=== PATIENT | male | born 1940 | race Caucasian/White ===

== ENCOUNTER 2018-03-25 15:33 | Emergency (ER) | payer OTHER, SELFPAY ==
[2018-03-25 15:40] VITALS: BP 162/84; PULSE 85; RESP 14; TEMP 36.9; O2SAT 100; BMI 22.6
--- NOTE | 2018-03-25 15:41 | ED_ITS ---
HPI - General Adult General Chief complaint: Neuro Symptoms/Deficit Stated complaint: pain with eye movement,sent by [facility] Time Seen by Provider: 03/25/18 15:39 Source: patient Mode of arrival: ambulatory Limitations: no limitations History of Present Illness HPI narrative: Patient is a 78-year-old male sent over from the ophthalmology clinic for concerning findings during that visit. 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 Their phone number is . Patient went to that visit today because for the past 2 weeks he has had a stable central scotoma. Then over the course of the next week he developed near complete blurring of his visual field. 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 Also has history of cataracts. Has also had Lasix performed in both eyes back in 1997. During his visit today it was noted that the patient had the continued left optic nerve atrophy and also noted today that the patient had right sided papilledema. Dr. Akins called me and was concerned about these findings and concern for a intracranial mass. Related Data Home Medications Medication Instructions Recorded Confirmed No Known Home Medications 03/25/18 03/25/18 Allergies Allergy/AdvReac Type Severity Reaction Status Date / Time No Known Drug Allergies Allergy Verified 03/25/18 16:05 Review of Systems Constitutional Denies fever(s) and Denies headache(s) Eyes Reports change in vision Comments: Central scotoma Blurring of visual field ENT Ears, Nose, Mouth, and Throat: Denies vertigo, Denies dizziness and Denies headache(s) Cardiovascular Denies chest pain, Denies syncope and Denies dyspnea Respiratory Denies cough and Denies dyspnea Gastrointestinal Gastrointestinal: Denies abdominal pain, Denies nausea and Denies vomiting Genitourinary Denies hematuria and Denies dysuria Musculoskeletal Denies myalgias and Denies arthralgias Integumentary/Breasts Denies pruritus, Denies lesions and Denies rash Neurologic Denies confusion, Denies vertigo, Denies dizziness, Denies syncope and Denies headache(s) Psychiatric Denies confusion Hematologic/Lymphatic Denies easy bleeding and Denies easy bruising FOR[facility]LY [facility] Medical History BPH (benign prostatic hyperplasia) (Acute) Surgical History Status post appendectomy Status post hernia repair Status post repair of hydrocele Social History Smoking Status: Never smoker Exam Initial Vital Signs Initial Vital Signs: Vital Signs Temperature 98.5 F 03/25/18 15:40 Pulse Rate 85 03/25/18 15:40 Respiratory Rate 14 03/25/18 15:40 Blood Pressure 162/84 H 03/25/18 15:40 Pulse Oximetry 100 03/25/18 15:40 Const General: cooperative, healthy appearing, comfortable, well developed, well groomed and No acute distress Orientation: alert, awake and oriented x3 HENMT Head: normal to inspection, normocephalic and atraumatic Ears: hearing grossly normal bilaterally Nose: external nose normal Eyes Other: Dilated pupils from the eye exam earlier today. Resp Effort & Inspection: normal respiratory effort Auscultation: clear to auscultation bilaterally Cardio Rate: regular rate Rhythm: regular rhythm Back/Spine/Pelvis Back: No back tenderness Skin Lesions: lesions noted Rashes: rash noted Neuro General: alert, awake and oriented x3 Cognition: normal cognition Speech: speech normal Gait: normal gait Motor: muscle tone normal throughout Sensory Exam: no sensory deficits noted Extrem General: normal to inspection and full ROM Psych Appearance: grossly normal and well kempt Course Orders Ordered: ED Orders 03/25/18 17:00 Basic Metabolic Panel Stat Complete Blood Count AUTO DIFF Stat 03/25/18 17:25 CT head/brain wo con Stat Vital Signs - 8 hr 03/25/18 15:40 03/25/18 16:03 03/25/18 16:35 Temperature 98.5 F Pulse Rate 85 85 73 Respiratory Rate 14 14 16 Blood Pressure 162/84 H Blood Pressure [Left Arm] 165/95 H 147/77 H Pulse Oximetry 100 98 100 Medical Decision Making MDM Narrative Medical decision making narrative: Patient was sent over for concern of a intracranial mass. Discussed the case with the [place] provider who asked us to obtain a CT of the head prior to any disposition. This was obtained and waiting for results. Care turned over to night provider at change of shift for further disposition. Lab Data Lab results reviewed: Yes I reviewed the patient's lab results. Result diagrams: 03/25/18 17:00 03/25/18 17:00 Lab Results 03/25/18 03/25/18 Range/Units 17:00 17:00 WBC 5.4 (4.5-11.0) X10^3/uL RBC 4.80 (4.5-5.9) X10^6/uL Hgb 15.3 (13.5-17.5) g/dL Hct 44.6 (41-53) % MCV 93.0 (80-100) fL MCH 31.8 (26-34) PG MCHC 34.2 (30-36) % RDW 12.9 (11.6-14.8) % Plt Count 188 (150-400) X10^3/uL Neut % (Auto) 70.0 (50-75) % Lymph % (Auto) 16.6 L (25-40) % Menard % (Auto) 11.3 (3-14) % Eos % (Auto) 1.3 L (2-4) % Baso % (Auto) 0.8 (0-2) % Neut # (Auto) 3800 (0718-4911) /uL Sodium 142 (137-145) mmol/L Potassium 4.2 (3.4-5.1) mmol/L Chloride 101 (98-107) mmol/L Carbon Dioxide 33 H (22-32) mmol/L BUN 15 (9-20) mg/dL Creatinine 0.70 (0.66-1.25) mg/dL Estimated GFR > 60.0 (>60) mL/min BUN/Creatinine Ratio 21.4 (6-22) Glucose 92 (80-110) mg/dL Calcium 9.4 (8.4-10.2) mg/dL Discharge Plan Departure Patient Disposition: [facility] Clinical Impression: Visual loss Discharge Date/Time: 03/25/18 22:40 Interventions: ED Discharge Assessment Last Done: 03/25/18 22:36 Prescriptions: No Action No Known Home Medications RF: 0
[2018-03-25 16:03] VITALS: BP 165/95; PULSE 85; RESP 14; O2SAT 98
[2018-03-25 16:35] VITALS: BP 147/77; PULSE 73; RESP 16; O2SAT 100
--- NOTE | 2018-03-25 17:25 | DI.CT.S_ITS ---
PROCEDURE: CT HEAD/BRAIN WO CON INDICATIONS: Right sided papilledema TECHNIQUE: Noncontrast 4.5 mm thick angled axial sections acquired from the foramen magnum to the vertex, with coronal and sagittal reformats. For radiation dose reduction, the following was used: automated exposure control, adjustment of mA and/or kV according to patient size. COMPARISON: None. FINDINGS: Image quality: Excellent. CSF spaces: Basal cisterns are patent. No extra-axial fluid collections. The ventricles are symmetric in size and shape. There is uoxn-rh-xvrjnior cerebral volume loss, with resultant ventricular and sulcal prominence. Brain: No intracranial hemorrhage, mass, or mass effect. There are subcortical, periventricular and deep white matter hypodensities consistent with mild chronic small vessel ischemic changes. There is intracranial internal carotid artery atherosclerosis. Skull and face: Calvarium and visualized facial bones appear intact, without suspicious lesions. The orbits appear within normal limits without intrarenal mass lesions identified. The globes are intact and symmetric in appearance. Sinuses: Visualized sinuses and mastoids are clear. IMPRESSION: 1. No acute intracranial abnormality. 2. No intraorbital or intracranial mass identified. If clinical concern persists, further evaluation may be obtained with MRI. 3. Mild chronic white matter small vessel ischemic changes and mild to moderate cerebral volume loss. Dictated by: Tyrone Barrientos M.D. on 03/25/2018 at 17:56 Approved by: Tyrone Barrientos M.D. on 03/25/2018 at 17:58
[2018-03-25 17:30] LABS: Add Manual Diff / Slide Review NO; Basophils Percent Auto 0.8 % (0-2); Eosinophils Percent Auto 1.3 % (2-4); Hematocrit 44.6 % (41-53); Hemoglobin 15.3 g/dL (13.5-17.5); Lymphocytes Percent Auto 16.6 % (25-40); Mean Corpuscular HGB Conc 34.2 % (30-36); Mean Corpuscular Hemoglobin 31.8 PG (26-34); Monocytes Percent Auto 11.3 % (3-14); Neutrophils Absolute Auto 3800 /uL (3000-5900); Platelet Count 188 X10^3/uL (150-400); Red Cell Distribution Width 12.9 % (11.6-14.8); White Blood Cell Count 5.4 X10^3/uL (4.5-11.0)
[2018-03-25 17:37] LABS: BUN Creatinine Ratio 21.4 (6-22); Blood Urea Nitrogen 15 mg/dL (9-20); Calcium 9.4 mg/dL (8.4-10.2); Carbon Dioxide 33 mmol/L (22-32); Chloride 101 mmol/L (98-107); Estimated Glomerular Filt Rate > 60.0 mL/min (>60); Glucose 92 mg/dL (80-110); HEMOLYSIS < 15 (0-50); Potassium 4.2 mmol/L (3.4-5.1); Sodium 142 mmol/L (137-145)
[2018-03-25 19:50] VITALS: BP 132/71; PULSE 80; RESP 12; TEMP 36.7; O2SAT 99
[2018-03-25 22:36] VITALS: BP 136/80; PULSE 59; RESP 16; TEMP 36.5; O2SAT 98
== END 2018-03-25 22:40 | disposition short-term general hospital (02) ==
PROVIDERS: Emergency Provider Emergency Medicine; Family Provider Family Medicine
DX: H54.7 Unspecified visual loss (principal)
CPT/HCPCS: 36415; 70450; 80048; 85025; 99283; 99284

== ENCOUNTER → 2018-08-06 11:24 | Outpatient (CLI) | payer OTHER, SELFPAY ==
[2018-08-06 12:08] LABS: Alanine Aminotransferase 23 IU/L (21-72); Albumin 4.3 g/dL (3.5-5.0); Albumin Globulin Ratio 1.6 (1.0-2.8); Alkaline Phosphatase 59 U/L (38-126); Aspartate Aminotransferase 16 IU/L (17-59); Bilirubin Total 0.4 mg/dL (0.2-1.3); Bilirubin Unconjugated 0.2 mg/dL (0.0-1.1); Globulin 2.7 g/dL (1.7-4.1); HEMOLYSIS < 15 (0-50)
[2018-08-06 15:25] LABS: Vitamin D 25 Hydroxy (D3) 48.6 ng/mL (30.0-100.0)
== END ==
PROVIDERS: PCP Student in an Organized Health Care Education/Training Program; Visit Provider Student in an Organized Health Care Education/Training Program
DX: E55.9 Vitamin D deficiency, unspecified (principal); Z79.899 Other long term (current) drug therapy
CPT/HCPCS: 36415; 80076; 82306

== ENCOUNTER → 2018-11-03 10:00 | Outpatient (CLI) | payer OTHER, SELFPAY ==
[2018-11-03 10:05] LABS: Bacteria Urine None Seen; RBC Urine None Seen (0-5/HPF); WBC Urine None Seen (0-5/HPF)
[2018-11-03 12:07] LABS: Appearance Urine UA CLEAR; Bilirubin Urine UA NEGATIVE (NEGATIVE); Color Urine UA YELLOW; Glucose Urine UA NEGATIVE (Negative); Ketones Urine UA NEGATIVE (NEGATIVE); Leukocyte Esterase Urine UA NEGATIVE (NEGATIVE); Nitrite Urine UA NEGATIVE (Negative); Occult Blood Urine UA NEGATIVE (Negative); Protein Urine UA NEGATIVE (Negative); Specific Gravity Urine UA 1.015 (1.000-1.035); Urobilinogen Urine UA 0.2 E.U./dL (0.2)
[2018-11-03 12:10] LABS: Protein (Total) Urine Random 5 mg/dL (0-12)
[2018-11-03 12:24] LABS: Culture Indicated Urine Cult Not Indicated
== END ==
PROVIDERS: PCP Student in an Organized Health Care Education/Training Program; Visit Provider Student in an Organized Health Care Education/Training Program
DX: R31.9 Hematuria, unspecified (principal); R80.9 Proteinuria, unspecified
CPT/HCPCS: 81001; 84156

== ENCOUNTER → 2020-01-31 12:36 | Outpatient (CLI) | payer OTHER, SELFPAY ==
--- NOTE | 2020-01-31 12:37 | DI.US.S_ITS ---
PROCEDURE: US RENAL COMPLETE INDICATIONS: URINARY RETENTION TECHNIQUE: Real-time scanning was performed of the kidneys and bladder, with image documentation. COMPARISON: None. FINDINGS: Kidneys: Kidneys are normal in size. Right kidney measures 10.9 cm long; left kidney measures 10.9 cm long. Right renal cortical thickness is 1.5 cm; left renal cortical thickness is 1.5 cm. Renal cortical echotexture is normal. No hydronephrosis or nephrolithiasis. No suspicious solid mass lesions. Bladder: Pre-void bladder volume is 272 mL. Post-void residual is 50 mL. Pre-void images demonstrate no intraluminal masses or stones. On pre-void images, bilateral ureteral jets are noted with color Doppler interrogation. (Of note, ureteral jets may not be detectable in up to 25% of cases due to insufficient differences in specific gravity between ureteral and bladder urine). Bladder trabeculations. Miscellaneous: No free pelvic fluid. IMPRESSION: 1. Normal appearance of the kidneys bilaterally. 2. Mild postvoid residual in the urinary bladder wall trabeculations. Mild chronic bladder outlet obstruction cannot be excluded and clinical correlation recommended. Dictated by: Kan Brooks [facility] Interpreted: Kecia Nevarez MD on 01/31/2020 at 14:12 Approved by: Kecia Nevarez M.D. on 01/31/2020 at 18:16
== END ==
PROVIDERS: PCP Student in an Organized Health Care Education/Training Program; Referring Provider Student in an Organized Health Care Education/Training Program; Visit Provider Student in an Organized Health Care Education/Training Program
DX: N40.1 Benign prostatic hyperplasia with lower urinary tract symptoms (principal); R33.9 Retention of urine, unspecified; R10.9 Unspecified abdominal pain
CPT/HCPCS: 76770

== ENCOUNTER 2020-05-03 10:30 | Outpatient (RCR) | payer OTHER, SELFPAY ==
--- NOTE | 2020-04-15 15:48 | PT.OIE ---
Current Diagnoses Urge incontinence (04/12/20) Nocturia (04/12/20) Urgency of urination (04/12/20) Past Medical History (Last Updated 05/26/18 @ 12:46 by Michelle Garcia) BPH (benign prostatic hyperplasia) (Chronic) Hypertension (Chronic) Past Surgical History (Last Updated 05/26/18 @ 13:13 by Michelle Garcia) History of colonoscopy (Resolved 10/31/11) History of right inguinal hernia repair (Resolved 12/01/11) Status post appendectomy (Resolved 1967) Status post hernia repair (Resolved 1975) Status post repair of hydrocele (Resolved 1975) Visit Care Team Role Provider Type Taiwo Guillermo MD Attending Provider Physician Primary Care Provider Referring Provider Specialty: Internal Medicine Address: [address] [place] [address], [address], [facility] Email: [email or web address] Physical Therapy Initial Evaluation PT-OP-A Visit Information Start: 04/15/20 15:14 Freq: Status: Active Protocol: Document 04/12/20 10:30 [facility] (Rec: 04/15/20 15:47 [facility] [email or web address]) Out-Patient Physical Therapy Visit Information Visit Information Visit Type Initial Evaluation Visit Start Time 10:30 Visit Stop Time 11:15 Total Visit Minutes 45 Visit Number 1 Evaluation Information Evaluation Date 04/12/20 PT-OP-B Current Condition Start: 04/15/20 15:14 Freq: Status: Active Protocol: Document 04/12/20 10:30 [facility] (Rec: 04/15/20 15:47 [facility] [email or web address]) Current Condition History of Current Condition Onset Date chronic problem Current Complaints urinary frequency and nocturia History of Current Condition Luis is here today with complaints of urinary frequency and nocturia. He notes that he has had a history of frequent urination and nocturia. He voids 2-5 times per night. He states he has undergone urodynamic testing and per his report he is fully emptying his bladder. 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 He notes this started in is 40's but due to herbal remedies he is no longer experiencing the pain. But, when his bladder gets full it is a discomfort to him. He states that he empties his bladder frequently throughout the day prior to it being full. Past medical history includes right optic nerve inflammation, hernia and hydrocele repair, takes lipitor of elevated cholsterol . Treatment Goals Patient/Caregiver Goals pt would like to increase his duration between voids and decrease urinary frequency and urgency Prior Functional Status Baseline Function- ADL's Independent Baseline Function- Mobility Independent PT-OP-C Subjective Start: 04/15/20 15:14 Freq: Status: Active Protocol: Document 04/12/20 10:30 [facility] (Rec: 04/15/20 15:47 [facility] [email or web address]) OP-PT Subjective Patient Comments Patient Comments Pt reports during the day he drinks 1-2 cups of orange juice, 2 cups of coffee, 4 cups of water in am and pm, some times iced tea and wine at night but stops prior to 6 pm. He usually goes to bed around 8:30 PM PT-OP-F Manual Assessment Start: 04/15/20 15:14 Freq: Status: Active Protocol: Document 04/12/20 10:30 [facility] (Rec: 04/15/20 15:47 [facility] [email or web address]) Manual Assessments Soft Tissue Assessment Soft Tissue Mobility Assessment tightness of the myofasical tissue in the external posterior pelvic floor, adductors, and across the suprapubic region PT-OP-I Pelvic Floor Start: 04/15/20 15:14 Freq: Status: Active Protocol: Document 04/12/20 10:30 [facility] (Rec: 04/15/20 15:47 [facility] [email or web address]) Pelvic Floor Assessment Urine Pelvic Floor Surgery No Urinary Symptoms Urge Sensation Other Urinary Symptoms frequency of voiding and nocturia Voiding Frequency every hour during the day Nocturia 2-5 Contraction Ability Voluntary Contraction Moderate Voluntary Relaxation Moderate Comments Pelvic Floor Comments with external palpation Luis is able to properly contract his pelvic floor, there is some tension felt posteriorly, in the adductors and suprapubic fascia PT-OP-J Posture/Palpation/Skin Start: 04/15/20 15:14 Freq: Status: Active Protocol: Document 04/12/20 10:30 [facility] (Rec: 04/15/20 15:47 [facility] [email or web address]) Palpation Assessment Location adductors Palpation Location adductors Palpation Findings Soft Tissue Tightness sacral borders Palpation Location deep tissue tightness along the region of the coccygeus B Palpation Findings Soft Tissue Tightness,Muscle Guarding suprapubic fascia Palpation Location tightness and myofasical restrictions Palpation Findings Soft Tissue Tightness PT-OP-Q Treatments Start: 04/15/20 15:14 Freq: Status: Active Protocol: Document 04/12/20 10:30 [facility] (Rec: 04/15/20 15:47 [facility] [email or web address]) Self-Care/Home Management Treatment Education Patient Education Home Exercise Program Other Education pt was given a bladder diary today to begin looking at voiding frequency and bladder irritants, he was given a list of bladder irritants PT-OP-T Assessment and Plan Start: 04/15/20 15:14 Freq: Status: Active Protocol: Document 04/12/20 10:30 [facility] (Rec: 04/15/20 15:47 [facility] [email or web address]) Physical Therapy Assessment Rehab Potential Rehabilitation Potential Good Evaluation Complexity Number of Personal Factors/Comorbidities 0 Number of Body Systems Impaired 1-2 Clinical Presentation at Evaluation Stable Impairments Impairments Activity Tolerance,Sensation, Soft Tissue Mobility Other Impairments urniary urgency and nocturia Goals Tightness of the posterior pelvic floor Impairment tightness of the posterior pelvic floorm adductors, suprapubic fascia Blood Bank Booking Clerk Goal (LTG) Luis is educated on stretches for the pelvic floor , hips, and anterior abdominal wall to decrease irritation when his bladder is full and to help with fully emptying his bladder. LTG Duration 8 weeks bladder irritants contibuting to urgency Impairment The patient is consuming bladder irritants that can contribute to urgency Short Term Goal (STG) The patient is educated on bladder irritants and is given a bladder diary to begin logging his daily voids and fluid intake STG Duration 4 weeks One Impairment urinary urgency voiding every hour during the day, nocturia Short Term Goal (STG) Pt is educated on bladder retraining and urge deference techique STG Duration 4 weeks Mcfp Goal (LTG) Luis is able to delay the need to void to every 2-3 hours during the day and is waking only 1 time at night to void LTG Duration 8 weeks Assessment Summary Assessment Luis presents to physical therapy today with signs of urinary frequency and nocturia . may is here today with complaints of urinary frequency and nocturia. He reports voiding 2-5 times per night. He states he has undergone urodynamic testing and per his report he is fully emptying his bladder. 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 He notes this started in is 40's but due to herbal remedies he is no longer experiencing the pain. But, when his bladder gets full it is a discomfort to him. He states that he empties his bladder frequently throughout the day prior to it being full. He is retired and is able to frequently use the bathroom at home during the day. With examination today the patient was educated on the bladder and how the nerves from the bladder send a signal to the brain when it is time to empty. I explained to Luis how years of emptying his bladder prior to it being full due to prostate pain most likely have contributed to his difficulty with fully letting his bladder fill and nocturia. We talked about upregulation of the nervous system as this is what sounds like is happening to him. We reviewed bladder irritants today and he does start the day with both orange juice and coffee and ends the day with tea and sometimes wine. I educated him on how these irritants may be effecting his urgency and nocturia. He was given a bladder diary to begin recording his voids and what he is drinking and how much. I explained bladder retraining to him and urge deference technique. For this first week I asked Luis to try and avoid going to the bathroom just in case during the day and only once he had a urge. We will work on prolonging his voids during the day to try and help his nocturia. He is tight in his hip muscles, posterior pelvic floor, in the suprapubic fascia, and adductor muscles. We will start a stretching program for him as well to assist with fully relaxing when voiding and to help improve the bladders ability to fully expand. Physical Therapy Plan Frequency and Duration Frequency of Treatment 1x/Week Duration of Treatment 8 Plan of Care Start Date 04/12/20 Plan of Care End Date 06/07/20 Therapeutic Interventions Therapeutic Interventions Home Exercise Program, Neuromuscular Re-education, Patient/Caregiver Education, Self-Care/Home Management,Soft Tissue Mobilization, Therapeutic Exercises Modalities Biofeedback
--- NOTE | 2020-04-15 15:48 | PT.OPPOC ---
Physical, Occupational & Speech Therapy At [facility] Current Diagnoses Urge incontinence (04/12/20) Nocturia (04/12/20) Urgency of urination (04/12/20) Visit Care Team Role Provider Type Taiwo Guillermo MD Attending Provider Physician Primary Care Provider Referring Provider Specialty: Internal Medicine Address: [address] [place] [address], [address], [facility] Email: [email or web address] Plan Of Care PT-OP-T Assessment and Plan Start: 04/15/20 15:14 Freq: Status: Active Protocol: Document 04/12/20 10:30 [facility] (Rec: 04/15/20 15:47 [facility] [email or web address]) Physical Therapy Assessment Rehab Potential Rehabilitation Potential Good Evaluation Complexity Number of Personal Factors/Comorbidities 0 Number of Body Systems Impaired 1-2 Clinical Presentation at Evaluation Stable Impairments Impairments Activity Tolerance,Sensation, Soft Tissue Mobility Other Impairments urinary urgency and nocturia Goals Tightness of the posterior pelvic floor Impairment tightness of the posterior pelvic floor adductors, suprapubic fascia Mcfp Goal (LTG) Luis is educated on stretches for the pelvic floor , hips, and anterior abdominal wall to decrease irritation when his bladder is full and to help with fully emptying his bladder. LTG Duration 8 weeks bladder irritants contibuting to urgency Impairment The patient is consuming bladder irritants that can contribute to urgency Short Term Goal (STG) The patient is educated on bladder irritants and is given a bladder diary to begin logging his daily voids and fluid intake STG Duration 4 weeks One Impairment urinary urgency voiding every hour during the day, nocturia Short Term Goal (STG) Pt is educated on bladder retraining and urge deference technique STG Duration 4 weeks Mcfp Goal (LTG) Luis is able to delay the need to void to every 2-3 hours during the day and is waking only 1 time at night to void LTG Duration 8 weeks Assessment Summary Assessment Luis is here today with complaints of urinary frequency and nocturia. He reports voiding 2-5 times per night. He states he has undergone urodynamic testing and per his report he is fully emptying his bladder. 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 He notes this started in is 40's but due to herbal remedies he is no longer experiencing the pain. But, when his bladder gets full it is a discomfort to him. He states that he empties his bladder frequently throughout the day prior to it being full. He is retired and is able to frequently use the bathroom at home during the day. often every hour With examination today the patient was educated on the bladder and how the nerves from the bladder send a signal to the brain when it is time to empty. I explained to Luis how years of emptying his bladder prior to it being full due to prostate pain most likely have contributed to his difficulty with fully letting his bladder fill and nocturia. We talked about up regulation of the nervous system as this is what sounds like is happening to him. We reviewed bladder irritants today and he does start the day with both orange juice and coffee and ends the day with tea and sometimes wine. I educated him on how these irritants may be effecting his urgency and nocturia. He was given a bladder diary to begin recording his voids and what he is drinking and how much. I explained bladder retraining to him and urge deference technique. For this first week I asked Luis to try and avoid going to the bathroom just in case during the day and only once he had a urge. We will work on prolonging his voids during the day to try and help his nocturia. He is tight in his hip muscles, posterior pelvic floor, in the subrapubic fascia, and adductor muscles. We will start a stretching program for him as well to assist with fully relaxing when voiding and to help improve the bladders ability to fully expand. Physical Therapy Plan Frequency and Duration Frequency of Treatment 1x/Week Duration of Treatment 8 Plan of Care Start Date 04/12/20 Plan of Care End Date 06/07/20 Therapeutic Interventions Therapeutic Interventions Home Exercise Program, Neuromuscular Re-education, Patient/Caregiver Education, Self-Care/Home Management,Soft Tissue Mobilization, Therapeutic Exercises Modalities Biofeedback Plan of Care Dates Plan of Care Start Date 04/12/20 Plan of Care End Date 06/07/20 Electronically Signed by: Lima Dodge, PT 04/15/20 [id number] Please Sign and Return: I have reviewed this Plan of Care and certify that the skilled therapy services above are required to meet the patient?s needs. Physician Signature Date Printed Name and Credentials Clinical Instructor Signature Printed Name and Credentials
--- NOTE | 2020-04-26 13:30 | PT.OTN ---
Current Diagnoses Urge incontinence (04/26/20) Nocturia (04/26/20) Urgency of urination (04/26/20) Physical Therapy Treatment Note PT-OP-A Visit Information Start: 04/15/20 15:14 Freq: Status: Active Protocol: Document 04/26/20 10:35 [facility] (Rec: 04/26/20 10:42 [facility] [id number]) Out-Patient Physical Therapy Visit Information Visit Information Visit Type Treatment Note Visit Start Time 10:35 Visit Stop Time 11:15 Total Visit Minutes 45 Visit Number 2 PT-OP-B Current Condition Start: 04/15/20 15:14 Freq: Status: Active Protocol: Document 04/12/20 10:30 [facility] (Rec: 04/15/20 15:47 [facility] [id number]) Current Condition History of Current Condition Onset Date chronic problem Current Complaints urinary frequency and nocturia History of Current Condition Luis is here today with complaints of urinary frequency and nocturia. He notes that he has had a history of frequent urination and nocturia. He voids 2-5 times per night. He states he has undergone urodynamic testing and per his report he is fully emptying his bladder. 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 He notes this started in is 40's but due to herbal remedies he is no longer experiencing the pain. But, when his bladder gets full it is a discomfort to him. He states that he empties his bladder frequently throughout the day prior to it being full. Past medical history includes right optic nerve inflammation, hernia and hydrocele repair, takes lipitor of elevated cholsterol . Treatment Goals Patient/Caregiver Goals pt would like to increase his duration between voids and decrease urinary frequency and urgency Prior Functional Status Baseline Function- ADL's Independent Baseline Function- Mobility Independent PT-OP-C Subjective Start: 04/15/20 15:14 Freq: Status: Active Protocol: Document 04/26/20 10:35 [facility] (Rec: 04/26/20 10:42 [facility] [id number]) OP-PT Subjective Patient Comments Patient Comments pt brings in his bladder diary , he assumed that his bladder didn't have enough enough space to fill. He can tell that he has gotten into the habit of going more than he should during the day. His biggest voids are after he has been sitting relaxing in his recliner. He got to 12-13 oz amount of voiding which was a lot for him. Last night he slept for 4 hours and then for 5 hours which is really rare. Patient Reported Progress Improving PT-OP-F Manual Assessment Start: 04/15/20 15:14 Freq: Status: Active Protocol: Document 04/12/20 10:30 [facility] (Rec: 04/15/20 15:47 [facility] [id number]) Manual Assessments Soft Tissue Assessment Soft Tissue Mobility Assessment tightness of the myofasical tissue in the external posterior pelvic floor, adductors, and across the suprapubic region PT-OP-I Pelvic Floor Start: 04/15/20 15:14 Freq: Status: Active Protocol: Document 04/12/20 10:30 [facility] (Rec: 04/15/20 15:47 [facility] [id number]) Pelvic Floor Assessment Urine Pelvic Floor Surgery No Urinary Symptoms Urge Sensation Other Urinary Symptoms frequency of voiding and nocturia Voiding Frequency every hour during the day Nocturia 2-5 Contraction Ability Voluntary Contraction Moderate Voluntary Relaxation Moderate Comments Pelvic Floor Comments with external palpation Luis is able to properly contract his pelvic floor, there is some tension felt posteriorly, in the adductors and suprapubic fascia PT-OP-J Posture/Palpation/Skin Start: 04/15/20 15:14 Freq: Status: Active Protocol: Document 04/12/20 10:30 [facility] (Rec: 04/15/20 15:47 [facility] [id number]) Palpation Assessment Location adductors Palpation Location adductors Palpation Findings Soft Tissue Tightness sacral borders Palpation Location deep tissue tightness along the region of the coccygeus B Palpation Findings Soft Tissue Tightness,Muscle Guarding suprapubic fascia Palpation Location tightness and myofasical restrictions Palpation Findings Soft Tissue Tightness PT-OP-Q Treatments Start: 04/15/20 15:14 Freq: Status: Active Protocol: Document 04/26/20 13:21 [facility] (Rec: 04/26/20 13:30 [facility] [id number]) Therapeutic Exercises Supine Exercises diaphragmatic breathing Supine Exercise Name diaphragmatic breathing with pelvic floor relaxation on the inhale Side bilateral Comments taught the diaphramatic andpelvic rythym Other Exercises seated pelvic floor contract and relax Other Exercise Name pt was educated on pelvic floor facilitation and relaxation in sitting Comments guided imagery was used to to help facilitate and relax the pelvic floor Self-Care/Home Management Treatment Education Patient Education Home Exercise Program Other Education Pt was educated in the urge deference technique for bladder retraining and increasing the time between voids. His bladder diary was reviewed and he is noticing that if he spreads out his voids during the day it makes his bladder better able to stretch at night PT-OP-T Assessment and Plan Start: 04/15/20 15:14 Freq: Status: Active Protocol: Document 04/26/20 13:21 [facility] (Rec: 04/26/20 13:30 [facility] [id number]) Physical Therapy Assessment Assessment Summary Assessment Luis was doing better today . He has been working on his bladder diary at home and is realizing that by increasing his voids during the day he is sleeping better at night and for longer periods. Today I taught him diaphragmatic breathing and a bladder retraining technique. I also taught him pelvic floor anatomy and how to contract and relax the pelvic floor in sitting. Physical Therapy Plan Frequency and Duration Frequency of Treatment 1x/Week Duration of Treatment 8 Plan of Care Start Date 04/12/20 Plan of Care End Date 06/07/20 Next Visit Focus/Plan Next Note Type Treatment Note Next Visit Plan review exercises given today and begin stretches for the posterior pelvic floor and bladder region
--- NOTE | 2020-05-03 13:41 | PT.OTN ---
Current Diagnoses Urge incontinence (05/03/20) Nocturia (05/03/20) Urgency of urination (05/03/20) Physical Therapy Treatment Note PT-OP-A Visit Information Start: 04/15/20 15:14 Freq: Status: Active Protocol: Document 05/03/20 10:45 [facility] (Rec: 05/03/20 11:25 [facility] [id number]) Out-Patient Physical Therapy Visit Information Visit Information Visit Type Treatment Note Visit Start Time 10:40 Visit Stop Time 11:15 Total Visit Minutes 35 Visit Number 3 Evaluation Information Evaluation Date 04/12/20 PT-OP-B Current Condition Start: 04/15/20 15:14 Freq: Status: Active Protocol: Document 04/12/20 10:30 [facility] (Rec: 04/15/20 15:47 [facility] [id number]) Current Condition History of Current Condition Onset Date chronic problem Current Complaints urinary frequency and nocturia History of Current Condition Luis is here today with complaints of urinary frequency and nocturia. He notes that he has had a history of frequent urination and nocturia. He voids 2-5 times per night. He states he has undergone urodynamic testing and per his report he is fully emptying his bladder. 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 He notes this started in is 40's but due to herbal remedies he is no longer experiencing the pain. But, when his bladder gets full it is a discomfort to him. He states that he empties his bladder frequently throughout the day prior to it being full. Past medical history includes right optic nerve inflammation, hernia and hydrocele repair, takes lipitor of elevated cholsterol . Treatment Goals Patient/Caregiver Goals pt would like to increase his duration between voids and decrease urinary frequency and urgency Prior Functional Status Baseline Function- ADL's Independent Baseline Function- Mobility Independent PT-OP-C Subjective Start: 04/15/20 15:14 Freq: Status: Active Protocol: Document 05/03/20 10:45 [facility] (Rec: 05/03/20 11:25 [facility] [id number]) OP-PT Subjective Patient Comments Patient Comments Luis reports he feels like looking at the model of the pelvic floor muscles last visit reallyhelped him. He used the urge deference technique at 1:30 am and then didn't wake up until 6:30 in the am. He notes he is doing better at night with not having to void as much. He brings in his bladder diary and is voiding less times per day now and for the last 3 nights he has only woken 2 times at night to void. He feels overall he is doing much better and after today's visit he will continue the exercises and bladder retraining at home PT-OP-F Manual Assessment Start: 04/15/20 15:14 Freq: Status: Active Protocol: Document 04/12/20 10:30 [facility] (Rec: 04/15/20 15:47 [facility] [id number]) Manual Assessments Soft Tissue Assessment Soft Tissue Mobility Assessment tightness of the myofasical tissue in the external posterior pelvic floor, adductors, and across the suprapubic region PT-OP-I Pelvic Floor Start: 04/15/20 15:14 Freq: Status: Active Protocol: Document 05/03/20 13:31 [facility] (Rec: 05/03/20 13:41 [facility] [id number]) Pelvic Floor Assessment Urine Voiding Frequency every 2-3 hours during the day Nocturia decreasing complains of night time voiding. Waking 1-2 times per night now PT-OP-J Posture/Palpation/Skin Start: 04/15/20 15:14 Freq: Status: Active Protocol: Document 04/12/20 10:30 [facility] (Rec: 04/15/20 15:47 [facility] [id number]) Palpation Assessment Location adductors Palpation Location adductors Palpation Findings Soft Tissue Tightness sacral borders Palpation Location deep tissue tightness along the region of the coccygeus B Palpation Findings Soft Tissue Tightness,Muscle Guarding suprapubic fascia Palpation Location tightness and myofasical restrictions Palpation Findings Soft Tissue Tightness PT-OP-Q Treatments Start: 04/15/20 15:14 Freq: Status: Active Protocol: Document 05/03/20 10:45 [facility] (Rec: 05/03/20 11:25 [facility] [id number]) Therapeutic Exercises Supine Exercises diaphragmatic breathing Supine Exercise Name diaphragmatic breathing with pelvic floor relaxation on the inhale Side bilateral Comments taught the diaphramatic andpelvic rythym Sitting Exercises pelvic floor long holds Sitting Exercise Name 10 second hold time and 10 second relax time Comments pt educated on the importance of fully relaxing his pelvic floor at rest Self-Care/Home Management Treatment Education Patient Education Home Exercise Program Other Education we reviewed bladder retraining and urge deference technique today, Luis was given a home program of diaphragmatic breathing and pelvic floor both contraction as well as full relaxation to encourage full voids. His bladder diary was reviewed today and he has been able to decrease his daily voids from as many as 13 times per day to 5-8 times per day. PT-OP-T Assessment and Plan Start: 04/15/20 15:14 Freq: Status: Active Protocol: Document 05/03/20 13:31 [facility] (Rec: 05/03/20 13:41 [facility] [id number]) Physical Therapy Assessment Goals Tightness of the posterior pelvic floor Impairment tightness of the posterior pelvic floorm adductors, suprapubic fascia Senior Living Goal (LTG) Luis is educated on stretches for the pelvic floor , hips, and anterior abdominal wall to decrease irritation when his bladder is full and to help with fully emptying his bladder. GOAL MET LTG Duration 8 weeks bladder irritants contibuting to urgency Impairment The patient is consuming bladder irritants that can contribute to urgency Short Term Goal (STG) The patient is educated on bladder irritants and is given a bladder diary to begin logging his daily voids and fluid intake GOAL MET STG Duration 4 weeks One Impairment urinary urgency voiding every hour during the day, nocturia Short Term Goal (STG) Pt is educated on bladder retraining and urge deference techique GOAL MET STG Duration 4 weeks Neckties Painter Goal (LTG) Luis is able to delay the need to void to every 2-3 hours during the day and is waking only 1 time at night to void EXCELLENT PROGRESS LTG Duration 8 weeks Progress Towards Goals Progress Towards Goals Progressing Toward Goals Assessment Summary Assessment Luis has been seen for 3 visits in PT. He notes he is doing much better overall. By having him do a bladder diary for the past 3 weeks he was able to realize how much he was voiding just in case throughout the day. The bladder diary along with working on bladder retraining and incorporating the urge deference technique has made a big difference for him. He is down from a average of 13 voids per day to 5-8 voids per day. His symptoms of nocturia are decreasing. Luis would like to work on his exercises independently at this time as he feels comfortable with his HEP. He will be dishcarged from PT at this time. Physical Therapy Plan Discharge Physical Therapy Discharge Reasons Patient Request Discharge Comments Pt has progressed well with his goals. He will continue to work on bladder retraining and his home exercise program independently
== END 2020-09-12 14:08 ==
LOC: PHYS 10:30
PROVIDERS: PCP Student in an Organized Health Care Education/Training Program; Referring Provider Student in an Organized Health Care Education/Training Program; Visit Provider Student in an Organized Health Care Education/Training Program
DX: N39.41 Urge incontinence (principal); R35.1 Nocturia
CPT/HCPCS: 97110; 97161; 97535

== ENCOUNTER → 2022-01-06 14:23 | Outpatient (CLI) | payer MEDICARE, SELFPAY ==
[2022-01-06 15:26] LABS: Add Manual Diff / Slide Review NO; Basophils Absolute Auto 0 /uL (0-100); Basophils Percent Auto 0.5 % (0-2); Eosinophils Absolute Auto 100 /uL (0-450); Eosinophils Percent Auto 1.6 % (2-4); Hemoglobin 14.2 g/dL (13.5-17.5); Lymphocytes Absolute Auto 1100 /uL (1100-4500); Lymphocytes Percent Auto 21.9 % (25-40); Mean Corpuscular HGB Conc 33.9 % (30-36); Mean Corpuscular Hemoglobin 31.5 PG (26-34); Monocytes Absolute Auto 600 /uL (0-900); Monocytes Percent Auto 13.1 % (3-14); Neutrophils Absolute Auto 3100 /uL (1500-7000); Neutrophils Percent Auto 62.9 % (50-75); Platelet Count 188 X10^3/uL (150-400); Red Blood Cell Count 4.52 X10^6/uL (4.5-5.9); Red Cell Distribution Width 13.1 % (11.6-14.8)
[2022-01-06 15:33] LABS: BUN Creatinine Ratio 18.2 (6-22); Blood Urea Nitrogen 14 mg/dL (9-20); Carbon Dioxide 30 mmol/L (22-32); Chloride 100 mmol/L (98-107); Cholesterol 162 mg/dL (140-199); Estimated Glomerular Filt Rate > 60 mL/min (>60); Glucose 110 mg/dL (80-110); HDL Cholesterol 60 mg/dL (40-60); HEMOLYSIS < 15 (0-50); LDL Cholesterol Calculated 71 mg/dL (<100); Potassium 4.2 mmol/L (3.4-5.1); Sodium 136 mmol/L (137-145); Triglycerides 153 mg/dL (35-150)
== END ==
PROVIDERS: PCP Student in an Organized Health Care Education/Training Program; Referring Provider Student in an Organized Health Care Education/Training Program; Visit Provider Student in an Organized Health Care Education/Training Program
DX: E78.2 Mixed hyperlipidemia (principal); I10 Essential (primary) hypertension; I95.1 Orthostatic hypotension
CPT/HCPCS: 36415; 80048; 80061; 85025

== ENCOUNTER → 2023-08-15 09:10 | Outpatient (CLI) | payer OTHER, SELFPAY ==
[2023-08-15 09:52] LABS: Add Manual Diff / Slide Review NO; Basophils Absolute Auto 100 /uL (0-100); Basophils Percent Auto 1.2 % (0-2); Eosinophils Absolute Auto 100 /uL (0-450); Eosinophils Percent Auto 1.4 % (2-4); Hematocrit 41.6 % (41-53); Hemoglobin 13.9 g/dL (13.5-17.5); Lymphocytes Absolute Auto 1000 /uL (1100-4500); Lymphocytes Percent Auto 21.5 % (25-40); Mean Corpuscular HGB Conc 33.4 % (30-36); Mean Corpuscular Hemoglobin 30.9 PG (26-34); Mean Corpuscular Volume 92.7 fL (80-100); Monocytes Absolute Auto 700 /uL (0-900); Monocytes Percent Auto 14.8 % (3-14); Neutrophils Absolute Auto 2800 /uL (1500-7000); Neutrophils Percent Auto 61.1 % (50-75); Platelet Count 201 X10^3/uL (150-400); Red Blood Cell Count 4.48 X10^6/uL (4.5-5.9); Red Cell Distribution Width 13.1 % (11.6-14.8); White Blood Cell Count 4.6 X10^3/uL (4.5-11.0)
[2023-08-15 10:32] LABS: Alanine Aminotransferase 13 IU/L (<50); Albumin 3.8 g/dL (3.5-5.0); Albumin Globulin Ratio 1.3 (1.0-2.8); Alkaline Phosphatase 57 U/L (38-126); Aspartate Aminotransferase 21 IU/L (17-59); BUN Creatinine Ratio 13.7 (6-22); Bilirubin Total 0.8 mg/dL (0.2-1.3); Blood Urea Nitrogen 10 mg/dL (9-20); Carbon Dioxide 27 mmol/L (22-32); Chloride 102 mmol/L (98-107); Cholesterol 130 mg/dL (140-199); Estimated Glomerular Filt Rate > 60 mL/min (>60); Globulin 2.9 g/dL (1.7-4.1); Glucose 87 mg/dL (80-110); HDL Cholesterol 47 mg/dL (40-60); HEMOLYSIS 24 (0-50); LDL Cholesterol Calculated 65 mg/dL (<100); Potassium 4.2 mmol/L (3.4-5.1); Sodium 134 mmol/L (137-145); Total Protein 6.7 g/dL (6.3-8.2); Triglycerides 89 mg/dL (35-150)
== END ==
PROVIDERS: PCP Family Medicine; Referring Provider Family Medicine; Visit Provider Family Medicine
DX: E78.2 Mixed hyperlipidemia (principal)
CPT/HCPCS: 36415; 80053; 80061; 85025

== ENCOUNTER → 2023-10-19 07:05 | Outpatient (CLI) | payer MEDICARE, SELFPAY ==
[2023-10-19 08:45] LABS: BUN Creatinine Ratio 16.3 (6-22); Blood Urea Nitrogen 13 mg/dL (9-20); Calcium 8.7 mg/dL (8.4-10.2); Carbon Dioxide 27 mmol/L (22-32); Chloride 104 mmol/L (98-107); Estimated Glomerular Filt Rate > 60 mL/min (>60); Glucose 84 mg/dL (80-110); HEMOLYSIS < 15 (0-50); Potassium 4.1 mmol/L (3.4-5.1); Sodium 135 mmol/L (137-145)
== END ==
PROVIDERS: PCP Family Medicine; Referring Provider Family Medicine; Visit Provider Family Medicine
DX: E87.1 Hypo-osmolality and hyponatremia (principal)
CPT/HCPCS: 36415; 80048